=== PATIENT | male | born 1970 | race Caucasian/White ===

== ENCOUNTER 2016-09-30 09:53 | Emergency (ER) | payer OTHER ==
[2016-09-30 11:27] VITALS: BP 124/81
--- NOTE | 2016-09-30 12:26 | UC ---
Ear Complaint HPI - HPI Summary HPI Summary: RIGHT EAR CLOGGED FOR FOUR WEEKS. HAS CHRONIC PROBLEM OF CERUMEN PRODUCTION. USES WAX REMOVAL DROPS. - History of Current Complaint Chief Complaint: UCEar Stated Complaint: RIGHT EAR CLOGGED Time Seen by Provider: 09/30/16 11:21 Hx Obtained From: Patient Onset/Duration: Gradual Onset, Lasting Weeks, Still Present Severity Initially: Mild Severity Currently: Moderate Associated Signs/Symptoms: Positive: Hearing Loss - Allergies/Home Medications Allergies/Adverse Reactions: Allergies Allergy/AdvReac Type Severity Reaction Status Date / Time No Known Allergies Allergy Verified 09/30/16 11:27 Home Medications: Home Medications Cyclobenzaprine TAB* [Flexeril 10 MG TAB*] 10 mg PO 09/30/16 [History] PMH/Surg Hx/FS Hx/Imm Hx Previously Healthy: Yes Endocrine History Of: Reports: Thyroid Disease - HYPOTHYROID Cardiovascular History Of: Reports: Hypertension Neurological History Of: Reports: Seizures - TEMPORAL LOBE EPILEPSY Psychological History Of: Reports: Depression - Surgical History Surgical History: Yes Surgery Procedure, Year, and Place: SKIN TAG REMOVAL FROM NECK - Family History Known Family History: Positive: None - Social History Occupation: Unemployed Lives: With Family Alcohol Use: Occasionally Substance Use Type: None Smoking Status (MU): Never Smoked Tobacco - Immunization History Most Recent Influenza Vaccination: UKN Most Recent Tetanus Shot: UKN Most Recent Pneumonia Vaccination: NONE Review of Systems Constitutional: Negative Skin: Negative Eyes: Negative ENT: Ear Ache Respiratory: Negative Cardiovascular: Negative Gastrointestinal: Negative Genitourinary: Negative Motor: Negative Neurovascular: Negative Musculoskeletal: Negative Neurological: Negative Psychological: Negative All Other Systems Reviewed And Are Negative: Yes Physical Exam Triage Information Reviewed: Yes Appearance: Well-Appearing, No Pain Distress, Well-Nourished Vital Signs: Initial Vital Signs Temp 97.6 F 09/30/16 11:22 Pulse 71 09/30/16 11:22 Resp 18 09/30/16 11:22 BP 124/81 09/30/16 11:22 Pulse Ox 98 09/30/16 11:22 Vital Signs Reviewed: Yes Eye Exam: Normal Eyes: Positive: Conjunctiva Clear ENT: Positive: Hearing grossly normal, Pharynx normal, TMs normal - S/P CERUMEN REMOVAL, Other: - RIGHT CERUMEN IMPACTION Dental Exam: Normal Neck exam: Normal Neck: Positive: Supple, Nontender, No Lymphadenopathy Respiratory Exam: Normal Respiratory: Positive: Chest non-tender, Lungs clear, Normal breath sounds, No respiratory distress, No accessory muscle use Cardiovascular Exam: Normal Cardiovascular: Positive: RRR, No Murmur, Pulses Normal Abdominal Exam: Normal Musculoskeletal Exam: Normal Musculoskeletal: Positive: Strength Intact Neurological Exam: Normal Psychological Exam: Normal Skin Exam: Normal Ear Complaint Course/Dx - Differential Dx/Diagnosis Differential Diagnosis/HQI/PQRI: Otitis Externa, Otitis Media, Trauma, URI Provider Diagnoses: RIGHT SIDED CERUMEN IMPACTION Discharge - Discharge Plan Condition: Stable Disposition: HOME Patient Education Materials: Cerumen Impaction (ED) Referrals: Yasmeen Branch MD [Primary Care Provider] -
== END 2016-09-30 12:22 | disposition home or self-care (01) ==
LOC: UCCORT 09:53
DX: H61.21 Impacted cerumen, right ear (principal); E03.9 Hypothyroidism, unspecified; I10 Essential (primary) hypertension; G40.909 Epilepsy, unspecified, not intractable, without status epilepticus; F32.9 Major depressive disorder, single episode, unspecified
CPT/HCPCS: 99212; G0463

== ENCOUNTER 2016-11-20 09:45 | Emergency (ER) | payer OTHER ==
[2016-11-20 10:52] VITALS: BP 149/85
--- NOTE | 2016-11-20 11:11 | UC ---
Ear Complaint HPI - HPI Summary HPI Summary: pt presents with c/o right ear tenderness, swelling and radiating jaw pain . Pt reports that he has been swimming frequently in [place]. Has history of otitis externa - History of Current Complaint Chief Complaint: UCEar Stated Complaint: BILATERAL EAR COMPLAINT NECK/JAW PAIN Time Seen by Provider: 11/20/16 11:06 Hx Obtained From: Patient Onset/Duration: Gradual Onset, Lasting Days Severity Initially: Mild Severity Currently: Mild Associated Signs/Symptoms: Positive: Swelling @ - right outer ear - Allergies/Home Medications Allergies/Adverse Reactions: Allergies Allergy/AdvReac Type Severity Reaction Status Date / Time No Known Allergies Allergy Verified 11/20/16 10:52 Home Medications: Home Medications Lurasidone (NF) [Latuda (NF)] 40 mg PO 11/20/16 [History Confirmed 11/20/16] PMH/Surg Hx/FS Hx/Imm Hx Previously Healthy: Yes - Surgical History Surgical History: Yes Surgery Procedure, Year, and Place: SKIN TAG REMOVAL FROM NECK - Family History Known Family History: Positive: Cardiac Disease - Social History Alcohol Use: Occasionally Substance Use Type: None Smoking Status (MU): Never Smoked Tobacco - Immunization History Most Recent Influenza Vaccination: UKN Most Recent Tetanus Shot: UKN Most Recent Pneumonia Vaccination: NONE Review of Systems Constitutional: Negative Skin: Negative Eyes: Negative ENT: Ear Ache - right ear Respiratory: Negative Cardiovascular: Negative Gastrointestinal: Negative Genitourinary: Negative Motor: Negative Neurovascular: Negative Musculoskeletal: Negative Neurological: Negative Psychological: Negative All Other Systems Reviewed And Are Negative: Yes Physical Exam Triage Information Reviewed: Yes Appearance: Well-Appearing Vital Signs: Initial Vital Signs Temp 97.5 F 11/20/16 10:47 Pulse 70 11/20/16 10:47 Resp 14 11/20/16 10:47 BP 149/85 11/20/16 10:47 Pulse Ox 96 11/20/16 10:47 Vital Signs Reviewed: Yes Eye Exam: Normal ENT Exam: Other ENT: Positive: Other: - right ear canal mild erythema with creamy white discharge. Neck exam: Normal Respiratory Exam: Normal Cardiovascular Exam: Normal Musculoskeletal Exam: Normal Neurological Exam: Normal Psychological Exam: Normal Skin Exam: Normal Ear Complaint Course/Dx - Differential Dx/Diagnosis Differential Diagnosis/HQI/PQRI: Cerumen Impaction, Otitis Externa Provider Diagnoses: otitis externa right ear Discharge - Discharge Plan Condition: Stable Disposition: HOME Prescriptions: Acetic Acid (Otic) [Acetic Acid] 3 drop OT Q8H #1 bottle Patient Education Materials: Otitis Externa (ED) Referrals: Susan SCHMIDT,Nona Granger [Primary Care Provider] -
== END 2016-11-20 11:29 | disposition home or self-care (01) ==
LOC: UCCORT 09:45
DX: H60.91 Unspecified otitis externa, right ear (principal)
CPT/HCPCS: 99211; G0463

== ENCOUNTER → 2018-12-05 08:05 | Emergency (ER) | payer BC, OTHER ==
[~2018-12-05 08:05] MED LIST: Cyclobenzaprine TAB* 10 MG PO ONE; predniSONE TAB* 20 MG PO ONE
--- NOTE | 2018-12-05 09:10 | ED ---
Back Pain - HPI Summary HPI Summary: This patient is a 48-year-old male with a history of bipolar disorder and anxiety presenting to the ED with right-sided back pain. He states he injured the back approximately 3 weeks ago helping a friend pull on a pipe. He states he may have strained it at that time, but denied any pain other than a dull ache. He states of the course of the last 3 weeks, he has been developing right -sided intermittent aching strain just to the right side of the mid back radiating to the right ribs. He is now stating it is difficult for him to take a deep breath due to discomfort. Denies any history of COPD or asthma. Patient states not being able to breathe is causing him anxiety. He does have Ativan at home but has not taken it. He took ibuprofen 800 mg this morning without relief. - History of Current Complaint Chief Complaint: EDBackInjuryPain Stated Complaint: RT SIDED BACK/RIB PAIN/HARD TO BREATH PER PT Time Seen by Provider: 12/05/18 08:12 Hx Obtained From: Patient Onset/Duration: Sudden Onset Onset/Duration: Started Hours Ago Timing: Constant Back Pain Location: Is Discrete @ - right midback and R ribs Severity Initially: Moderate Severity Currently: Moderate Pain Intensity: 9 Pain Scale Used: 0-10 Numeric Character: Aching Aggravating Symptom(s): Movement Alleviating Symptom(s): Rest Associated Signs And Symptoms: Negative: Swelling, Redness, Bruising - Risk Factors AAA Risk Factors: Negative TAD Risk Factors: Negative Cauda Equina Risk Factors: Negative Epidural Abscess Risk Factors: Negative - Allergies/Home Medications Allergies/Adverse Reactions: Allergies Allergy/AdvReac Type Severity Reaction Status Date / Time No Known Allergies Allergy Verified 12/05/18 08:13 PMH/Surg Hx/FS Hx/Imm Hx Previously Healthy: Yes Endocrine/Hematology History: Reports: Hx Thyroid Disease - HYPOTHYROID Cardiovascular History: Reports: Hx Hypercholesterolemia, Hx Hypertension Sensory History: Reports: Hx Contacts or Glasses Opthamlomology History: Reports: Hx Contacts or Glasses Neurological History: Reports: Hx Seizures - TEMPORAL LOBE EPILEPSY Psychiatric History: Reports: Hx Depression Denies: Hx Eating Disorder, Hx of Violent Episodes Against Others - Surgical History Surgery Procedure, Year, and Place: SKIN TAG REMOVAL FROM NECK - Immunization History Hx Pertussis Vaccination: No Immunizations Up to Date: Yes Infectious Disease History: No Infectious Disease History: Denies: Traveled Outside the [place] in Last 30 Days - Family History Known Family History: Positive: None, Cardiac Disease - Social History Occupation: Employed Full-time Lives: With Family Alcohol Use: Occasionally Hx Substance Use: No Substance Use Type: Reports: None Smoking Status (MU): Never Smoked Tobacco Review of Systems Negative: Fever, Chills, Fatigue, Skin Diaphoresis Negative: Palpitations, Chest Pain Negative: Shortness Of Breath, Cough Genitourinary: Negative Positive: no symptoms reported, see HPI Positive: Arthralgia - right sided rib pain Skin: Negative Neurological: Negative All Other Systems Reviewed And Are Negative: Yes Physical Exam Triage Information Reviewed: Yes Vital Signs On Initial Exam: Initial Vitals Temp Pulse Resp BP Pulse Ox 98.1 F 71 16 173/109 99 12/05/18 08:08 12/05/18 08:08 12/05/18 08:08 12/05/18 08:08 12/05/18 08:08 Vital Signs Reviewed: Yes Appearance: Positive: Well-Appearing, Well-Nourished Skin: Positive: Warm, Skin Color Reflects Adequate Perfusion Head/Face: Positive: Normal Head/Face Inspection Eyes: Positive: EOMI, Conjunctiva Clear Neck: Positive: Supple, Nontender, No Lymphadenopathy Respiratory/Lung Sounds: Positive: Clear to Auscultation, Breath Sounds Present Cardiovascular: Positive: RRR, Pulses are Symmetrical in both Upper and Lower Extremities Musculoskeletal: Positive: Pain @ - right rib pain Neurological: Positive: Speech Normal Psychiatric: Positive: Affect/Mood Appropriate AVPU Assessment: Alert Diagnostics - Vital Signs Vital Signs Temp Pulse Resp BP Pulse Ox 12/05/18 08:08 98.1 F 71 16 173/109 99 - Laboratory Lab Statement: Any lab studies that have been ordered have been reviewed, and results considered in the medical decision making process. Back Pain Course/Dx - Course Course Of Treatment: During his course treatment, the patient is evaluated for right-sided rib pain radiating from the mid spine after a likely strain 3 weeks ago. He states this is typical for him to breathe. On physical examination, there is no pain with deep palpation of the right rib cage. Lungs CTA, RRR. X- ray obtained which shows: No no acute findings or cardiopulmonary disease. This was discussed with the patient. He is given heating pad, Flexeril and prednisone in the ED. he is given prescriptions for this. He will f/u with [facility] [place]. - Diagnoses Differential Diagnosis/HQI/PQRI: Positive: Strain, Sprain Provider Diagnoses: Rib pain on right side Discharge - Sign-Out/Discharge Documenting (check all that apply): Patient Departure Patient Received Moderate/Deep Sedation with Procedure: No - Discharge Plan Condition: Stable Disposition: HOME Prescriptions: Cyclobenzaprine TAB* [Flexeril TAB*] 10 mg PO BID PRN #14 tab PRN Reason: Pain predniSONE TAB* [Deltasone TAB*] 50 mg PO DAILY #5 tab MDD 1 Patient Education Materials: Muscle Strain (ED) Forms: *Work Release Referrals: No Primary Care Phys,NOPCP [Primary Care Provider] - Additional Instructions: If symptoms persist -return to the ED flexeril twice daily as needed for pain Ibuprofen 600mg three times daily Heat to the area Prednisone once daily x 5 days - start tmw morning - Billing Disposition and Condition Condition: STABLE Disposition: Home
[2018-12-05 12:09] VITALS: BP 151/92
== END | disposition home or self-care (01) ==
LOC: ED 08:05
DX: R07.81 Pleurodynia (principal); E03.9 Hypothyroidism, unspecified; E78.00 Pure hypercholesterolemia, unspecified; I10 Essential (primary) hypertension
CPT/HCPCS: 71046; 99283; A9270-GY; J7512

== ENCOUNTER 2018-12-13 01:55 | Emergency (ER) | payer OTHER ==
[2018-12-13] MEDS ORDERED: LORazepam TAB(*) 1 MG PO ONE ×2 (02:13→03:50)
--- NOTE | 2018-12-13 02:18 | ED ---
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 Pt reports these episodes are usually controlled but today he has had 5 in the past 24 hours. He describes these episodes as extremities becoming numb, "they come on like bad anxiety" with heart palpitations, "like my brain is melting," "like I'm gonna ," and abd cramping. 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 Weinberg at [facility]) . Pt states his episodes today are stress induced because he has been under "massive" amount of stress. His medications include [place] for bipolar disorder, lorazepam (but has not taken it in while as he doesn't have any), Methadone ER, Concerta for ADD, 10 mg of Lisinopril for HTN (but has not taken it in a while), Lipitor. PMHx includes temporal lobe epilepsy, bipolar disorder, ADD, HTN, PTSD. - History of Current Complaint Chief Complaint: EDSeizure Stated Complaint: SEIZURES PER EMS Time Seen by Provider: 12/13/18 02:03 Hx Obtained From: Patient Onset/Duration: Started hours ago, Still Present Number of Seizures: 5 - temporal lobe epilepsy Pain Intensity: 0 Pain Scale Used: 0-10 Numeric Character: Numbness/Tingling, Other: - palpitations, abd cramping, "bad anxiety " Aggravating: Nothing Alleviating: Nothing Associated Signs and Symptoms: Positive: Seizure, Numbness, Palpitations, Anxiety. Negative: Fever - Allergy/Home Medications Allergies/Adverse Reactions: Allergies Allergy/AdvReac Type Severity Reaction Status Date / Time No Known Allergies Allergy Verified 12/13/18 20:15 Home Medications: Home Medications Tegretol TAB(*) 800 mg PO QAM MDD 1400 12/13/18 [History Confirmed 12/13/18] PMH/Surg Hx/FS Hx/Imm Hx Endocrine/Hematology History: Reports: Hx Thyroid Disease - HYPOTHYROID Cardiovascular History: Reports: Hx Hypercholesterolemia, Hx Hypertension Sensory History: Reports: Hx Contacts or Glasses Opthamlomology History: Reports: Hx Contacts or Glasses Neurological History: Reports: Hx Seizures - TEMPORAL LOBE EPILEPSY Psychiatric History: Reports: Hx Depression Denies: Hx Eating Disorder, Hx of Violent Episodes Against Others - Surgical History Surgery Procedure, Year, and Place: SKIN TAG REMOVAL FROM NECK Infectious Disease History: No Infectious Disease History: Denies: Traveled Outside the [place] in Last 30 Days - Family History Known Family History: Positive: Cardiac Disease - Social History Alcohol Use: Occasionally Hx Substance Use: No Substance Use Type: Reports: None Smoking Status (MU): Never Smoked Tobacco Review of Systems Constitutional: Other - POSITIVE: recent stress Negative: Fever Positive: Palpitations Positive: Abdominal Pain Positive: Numbness - extremities Positive: Anxious All Other Systems Reviewed And Are Negative: Yes Physical Exam - Summary Physical Exam Summary: Appearance: Well-appearing, Well-nourished, lying in bed comfortably Skin: Warm, dry, no obvious rash Eyes: sclera anicteric, no conjunctival pallor ENT: mucous membranes moist, pharynx appears normal Neck: Supple, nontender Respiratory: Clear to auscultation, no signs of respiratory distress Cardiovascular: Normal S1, S2. No murmurs. Normal distal pulses in tibial and radial bilaterally. Abdomen: Soft, nontender, normal active bowel sounds present Musculoskeletal: Normal, Strength/ROM Intact Neurological: A&Ox3, awake and alert, mentation is normal, speech is fluent and appropriate Psychiatric: affect is normal, does not appear anxious or depressed Triage Information Reviewed: Yes Vital Signs On Initial Exam: Initial Vitals Temp Pulse Resp BP Pulse Ox 98.5 F 68 14 171/105 97 12/13/18 02:04 12/13/18 02:04 12/13/18 02:04 12/13/18 02:04 12/13/18 02:04 Vital Signs Reviewed: Yes Diagnostics - Vital Signs Vital Signs Temp Pulse Resp BP Pulse Ox 12/13/18 02:04 98.5 F 68 14 171/105 97 - Laboratory Result Diagrams: 12/13/18 02:31 12/13/18 02:31 Lab Statement: Any lab studies that have been ordered have been reviewed, and results considered in the medical decision making process. 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 Pt reports these episodes are usually controlled but today he has had 5 in the past 24 hours. He describes these episodes as extremities becoming numb, "they come on like bad anxiety" with heart palpitations, "like my brain is melting," "like I'm gonna ," and abd cramping. Test results within normal limits. In the ED course the pt was given Ativan. Pt will be discharged home with follow up from neurologist, Dr. Corley. He is recommended to have an outpatient EEG to diagnose temporal lobe epilepsy. - Diagnoses Provider Diagnoses: Anxiety Discharge - Sign-Out/Discharge Documenting (check all that apply): Patient Departure - Discharge home Patient Received Moderate/Deep Sedation with Procedure: No - Discharge Plan Condition: Good Disposition: HOME Patient Education Materials: Anxiety (ED) Referrals: Amilcar Corley MD [Medical Doctor] - Additional Instructions: I am not at all convinced that these spells represent temporal lobe seizures. The description you give is much more typical of anxiety or panic attack, and does not sound like the typical symptoms of temporal lobe seizure. I think you should see a neurologist and have an EEG done to find out if you really suffer from TLE. In the interim go ahead and take the ativan up to 3 times daily. - Billing Disposition and Condition Condition: GOOD Disposition: Home - Attestation Statements Document Initiated by Tiffany: Yes Documenting Scribe: Vanessa Jhaveir Provider For Whom Tiffany is Documenting (Include Credential): Antony Méndez MD Scribe Attestation: I, Vanessa Jhaveri, scribed for Antony Méndez MD on 12/14/18 at 0614. Scribe Documentation Reviewed: Yes Provider Attestation: The documentation as recorded by the Vanessa zarco accurately reflects the service I personally performed and the decisions made by me, Antony Méndez MD Status of Scribe Document: Viewed
[2018-12-13 02:40] LABS: ABS Basophils 0.1 10^3/ul (0-0.2); ABS Eosinophils 0.3 10^3/ul (0-0.6); ABS Lymphocytes 3.3 10^3/ul (1.0-4.8); ABS Monocytes 1.2 10^3/ul (0-0.8); ABS Neutrophils 5.7 10^3/ul (1.5-7.7); Eosinophil % 2.8 %; Hematocrit 43 % (42-52); Hemoglobin 14.4 g/dL (14.0-18.0); Lymphocyte % 30.9 %; Mean Corpuscular HGB Conc 34 g/dL (31-36); Mean Corpuscular Hemoglobin 30 pg (27-31); Mean Corpuscular Volume 89 fL (80-94); Platelet Count 289 10^3/uL (150-450); Red Blood Count 4.79 10^6 /uL (4.18-5.48); Red Cell Distribution Width 13 % (10-15); White Blood Count 10.6 10^3/uL (3.5-10.8)
[2018-12-13 03:14] LABS: Alcohol < 10 mg/dL (<10); Carbamazepine 9.3 mcg/mL (4.0-12.0)
[2018-12-13 03:23] LABS: Albumin 4.5 g/dL (3.2-5.2); Albumin/Globulin Ratio 1.7 (1-3); Alkaline Phosphatase 81 U/L (34-104); Anion Gap 9 mmol/L (2-11); BUN/Creatinine Ratio 25.4 (8-20); Blood Urea Nitrogen 16 mg/dL (6-24); CO2 Carbon Dioxide 25 mmol/L (22-32); Calcium 9.5 mg/dL (8.6-10.3); Chloride 104 mmol/L (101-111); EGFR African American 163.8 (>60); EGFR Non-African American 135.4 (>60); Globulin 2.7 g/dL (2-4); Glucose 109 mg/dL (70-100); Sodium 138 mmol/L (135-145); Total Protein 7.2 g/dL (6.4-8.9)
[2018-12-13 03:57] LABS: ALT 21 U/L (7-52); AST 19 U/L (13-39)
[2018-12-13 04:22] VITALS: BP 169/101
[2018-12-13 04:40] LABS: Urine Appearance Clear; Urine Bacteria Absent (Absent); Urine Bilirubin Negative (Negative); Urine Blood 1+ (Negative); Urine Color Yellow; Urine Glucose Negative (Negative); Urine Ketones Negative (Negative); Urine Nitrite Negative (Negative); Urine Protein Negative (Negative); Urine Red Blood Cell Trace(0-2/hpf) (Absent); Urine Specific Gravity 1.013 (1.010-1.030); Urine Squamous Epithelial Cell Present (Absent); Urine Urobilinogen Negative (Negative); Urine White Blood Cell Trace(0-5/hpf) (Absent)
== END 2018-12-13 04:21 | disposition home or self-care (01) ==
LOC: ED 01:55
DX: F41.9 Anxiety disorder, unspecified (principal); E03.9 Hypothyroidism, unspecified; E78.00 Pure hypercholesterolemia, unspecified; I10 Essential (primary) hypertension; Z79.899 Other long term (current) drug therapy
CPT/HCPCS: 36415; 80053; 80156; 80320; 81003; 81015; 85025; 87086; 99283; A9270-GY; G0480

== ENCOUNTER 2018-12-13 18:36 | Emergency (ER) | payer OTHER ==
--- NOTE | 2018-12-13 19:54 | ED ---
Neurological HPI - HPI Summary HPI Summary: A 48 y/o female presents to [facility] with a chief complaint of 4 possible seizures for the past 36 hours. He says that he was in last night and has partial lobe epilepsy. He says that he has been having a "blast of seizures". He says that he takes 1400mg per day of Tegretol. He says that he started a new job and the boss threatens to fire him every day, and he has been having trouble sleeping. He says that he was diagnosed with epilepsy from an EEG when he was 18 and from another EEG in his 20s or 30s. He describes his seizures as having a feeling of euphoria and feeling of impending doom, sees colors, feels like he is going to . He says that he has anxiety which is "totally different". He says last time he was having this he was put on Valium and his symptoms stopped. He takes Ativan at home for anxiety and "burned through his monthly dose too fast". He takes 2mg Ativan per day. He can see that he can see his psychiatrist at [facility] this week. No SI HI. - History of Current Complaint Chief Complaint: EDSeizure Stated Complaint: EPILEPSY PER PT Time Seen by Provider: 12/13/18 19:46 Hx Obtained From: Patient Onset/Duration: Sudden Onset, Started days ago, Still Present Timing: Intermittent Episodes Lasting: - a bust of episodes over the past few days Onset Severity: Mild Current Severity: None Seizure Severity: Mild Number of Seizures: 4 - reports 4 over the last 36 hours Neurological Deficit Location: Generalized Pain Intensity: 0 Pain Scale Used: 0-10 Numeric Character: Other: - "having a feeling of euphoria and feeling of impending doom , sees colors, feels like (he) is going to ." Aggravating: Stress Alleviating: Nothing Associated Signs and Symptoms: Negative: Fever - Allergy/Home Medications Allergies/Adverse Reactions: Allergies Allergy/AdvReac Type Severity Reaction Status Date / Time No Known Allergies Allergy Verified 12/13/18 20:15 Home Medications: Home Medications carBAMazepine TAB(*) [Tegretol TAB(*)] 600 mg PO QPM 12/13/18 [History Confirmed 12/13/18] PMH/Surg Hx/FS Hx/Imm Hx Endocrine/Hematology History: Reports: Hx Thyroid Disease - HYPOTHYROID Cardiovascular History: Reports: Hx Hypercholesterolemia, Hx Hypertension Sensory History: Reports: Hx Contacts or Glasses Opthamlomology History: Reports: Hx Contacts or Glasses Neurological History: Reports: Hx Seizures - TEMPORAL LOBE EPILEPSY Psychiatric History: Reports: Hx Depression Denies: Hx Eating Disorder, Hx of Violent Episodes Against Others - Surgical History Surgery Procedure, Year, and Place: SKIN TAG REMOVAL FROM NECK Infectious Disease History: No Infectious Disease History: Denies: Traveled Outside the [place] in Last 30 Days - Family History Known Family History: Positive: Cardiac Disease - Social History Alcohol Use: Occasionally Hx Substance Use: No Substance Use Type: Reports: None Smoking Status (MU): Never Smoked Tobacco Review of Systems Negative: Fever Neurological: Other - positive: possible seizures Positive: Anxious All Other Systems Reviewed And Are Negative: Yes Physical Exam - Summary Physical Exam Summary: Constitutional: Well-developed, Well-nourished, Alert. (-) Distressed Skin: Warm, Dry HENT: Normocephalic; Atraumatic Eyes: Conjunctiva normal Neck: Musculoskeletal ROM normal neck. (-) JVD, (-) Stridor, (-) Nuchal rigidity Cardio: Rhythm regular, rate normal, Heart sounds normal; Intact distal pulses; Radial pulses are 2+ and symmetric. (-) Murmur Pulmonary/Chest wall: Effort normal. (-) Respiratory distress, (-) Wheezes, (-) Rales Abd: Soft, (-) tenderness, (-) Distension, (-) Guarding, (-) Rebound Musculoskeletal: (-) Edema Lymph: (-) Cervical adenopathy Neuro: Alert, Oriented x3, no focal neuro deficits Psych: anxious Triage Information Reviewed: Yes Vital Signs On Initial Exam: Initial Vitals Temp Pulse Resp BP Pulse Ox 97.9 F 96 20 167/126 97 12/13/18 18:43 12/13/18 18:43 12/13/18 18:43 12/13/18 18:43 12/13/18 18:43 Vital Signs Reviewed: Yes Diagnostics - Vital Signs Vital Signs Temp Pulse Resp BP Pulse Ox 12/13/18 18:43 97.9 F 96 20 167/126 97 - Laboratory Lab Statement: Any lab studies that have been ordered have been reviewed, and results considered in the medical decision making process. Course/Dx - Course Course Of Treatment: 48-year-old gentleman with a reported history of seizures on Tegretol, anxiety who presents with concern over increasing seizures. - Physical exam of the well-appearing male no acute distress does appear anxious though. No seizure activity observed. Patient was here last night with similar symptoms, was observed for many hours and did not have any obvious seizure activity. Patient is on chronic benzodiazepines, discussed with patient that we are not going to continue to fill these in the emergency department, however we will give him a short dose until he can see his psychiatrist this Sunday. Patient instructed not to take benzodiazepines with Benadryl at night to sleep. Follow-up with Dr. Corley in neurology. - Diagnoses Provider Diagnoses: Anxiety, Epilepsy Discharge - Sign-Out/Discharge Documenting (check all that apply): Patient Departure - DC Patient Received Moderate/Deep Sedation with Procedure: No - Discharge Plan Condition: Stable Disposition: HOME Prescriptions: LORazepam TAB(*) [Ativan 1 MG TAB (*)] 1 mg PO BID PRN 3 Days #5 tab MDD 2 PRN Reason: Anxiety Patient Education Materials: Epilepsy (DC), Anxiety (ED) Referrals: Amilcar Corley MD [Medical Doctor] - Additional Instructions: You were seen in the emergency department for seizures and anxiety. Please follow-up with your psychiatrist on Sunday. We will give you a one time prescription for Ativan, however we will not refill this in the emergency department If any studies were not completed at the time of discharge you will be called with the relevant results. Do not drive, take baths on a swim alone. Please follow up with your primary care doctor in next 2-3 days and return to emergency department for worsening or concerning symptoms. - Billing Disposition and Condition Condition: STABLE Disposition: Home - Attestation Statements Document Initiated by Cameronibgianna: Yes Documenting Scribe: Alejandro Foy Provider For Whom Tiffany is Documenting (Include Credential): Precious Bullard MD Scribe Attestation: Alejandro Glover, scribed for Precious Bullard MD on 12/13/18 at 2030. Scribe Documentation Reviewed: Yes Provider Attestation: The documentation as recorded by the Alejandro zarco accurately reflects the service I personally performed and the decisions made by me, Precious Bullard MD Status of Scribe Document: Viewed
[2018-12-13] MEDS ORDERED: LORazepam TAB(*) 1 MG PO ONE (20:07)
[2018-12-13 20:27] VITALS: BP 166/110
== END 2018-12-13 20:26 | disposition home or self-care (01) ==
LOC: ED 18:36
DX: F41.9 Anxiety disorder, unspecified (principal); G40.909 Epilepsy, unspecified, not intractable, without status epilepticus; I10 Essential (primary) hypertension
CPT/HCPCS: 99282

== ENCOUNTER 2018-12-14 21:59 | Emergency (ER) | payer OTHER ==
--- NOTE | 2018-12-14 22:31 | ED ---
Complex/Multi-Sys Presentation - HPI Summary HPI Summary: This patient is a 48 year old M presenting to ED with a chief complaint of constant subjective epileptic seizures since earlier today. Patient reports stomach cramping. Patient recently started a stressful job with a difficult to work with boss. Patient recently ran out of anxiety medicine for his chronic anxiety. The patient rates the pain 6/10 in severity. Symptoms aggravated by nothing. Symptoms alleviated by nothing. - History Of Current Complaint Chief Complaint: EDSeizure Hx Obtained From: Patient Onset/Duration: Gradual Onset, Still Present, Worse Since Timing: Constant Severity Currently: Severe Location: Pain At: - Abdominal cramping Aggravating Factor(s): Nothing Alleviating Factor(s): Nothing Associated Signs And Symptoms: Positive: Abdominal Pain - Cramping, Other - Anxious Related History: Other - Recent stress: new stressful job, ran out of anxiety medication - Allergies/Home Medications Allergies/Adverse Reactions: Allergies Allergy/AdvReac Type Severity Reaction Status Date / Time No Known Allergies Allergy Verified 12/13/18 20:15 PMH/Surg Hx/FS Hx/Imm Hx Endocrine/Hematology History: Reports: Hx Thyroid Disease - HYPOTHYROID Cardiovascular History: Reports: Hx Hypercholesterolemia, Hx Hypertension Sensory History: Reports: Hx Contacts or Glasses Opthamlomology History: Reports: Hx Contacts or Glasses Neurological History: Reports: Hx Seizures - TEMPORAL LOBE EPILEPSY Psychiatric History: Reports: Hx Anxiety, Hx Depression, Hx Bipolar Disorder Denies: Hx Eating Disorder, Hx of Violent Episodes Against Others - Surgical History Surgery Procedure, Year, and Place: SKIN TAG REMOVAL FROM NECK - Family History Known Family History: Positive: Cardiac Disease - Social History Alcohol Use: Occasionally Hx Substance Use: No Substance Use Type: Reports: None Hx Tobacco Use: No Smoking Status (MU): Never Smoked Tobacco Review of Systems Positive: Abdominal Pain - Cramping Neurological: Other - Subjective epileptic seizures Positive: Anxious All Other Systems Reviewed And Are Negative: Yes Physical Exam - Summary Physical Exam Summary: Appearance: Well-appearing, Well-nourished, lying in bed comfortable, claims to be having a seizure as we are talking, but he is totally lucid Skin: Warm, dry, no obvious rash Eyes: sclera anicteric, no conjunctival pallor ENT: mucous membranes moist Neck: deferred Respiratory: No signs of respiratory distress Cardiovascular: Appears well perfused, pulses are nml Abdomen: deferred Musculoskeletal: Moving all 4 extremities without obvious discomfort Neurological: Awake and alert, mentation is normal, speech is fluent and appropriate Psychiatric: affect is normal, does not appear anxious or depressed Triage Information Reviewed: Yes Vital Signs On Initial Exam: Initial Vitals Temp Pulse Resp BP Pulse Ox 98.5 F 80 18 190/118 98 12/14/18 22:21 12/14/18 22:21 12/14/18 22:21 12/14/18 22:21 12/14/18 22:21 Vital Signs Reviewed: Yes Diagnostics - Laboratory Result Diagrams: 12/14/18 22:54 12/14/18 22:54 Lab Statement: Any lab studies that have been ordered have been reviewed, and results considered in the medical decision making process. Re-Evaluation - Re-Evaluation First Eval Re-Evaluation Time: 22:41 Comment: Discussed Dr. Garcia's recommendations with patient and my suggestion for hospitalist admission for IV Ativan or for outpatient neuro evaluation. Patient admits to many recent stressors: family, overwork, less sleep, quit vaping 2 weeks ago. Patient agrees to be [place] [facility] Second Eval Re-Evaluation Time: 23:29 Change: Improved Comment: Discussed results with patient. Patient reports feeling better. Third Eval Re-Evaluation Time: 02:14 Change: Improved Comment: The patient is feeling much better after ativan IV. I am going to discharge the patient now with 2 x 1 mg tablets of ativan for tomorrow, and will contact his pharmacy tomorrow so they can fill a 1 week supply which will allow him to get in to see the neurologist this week to have more appropriate followup. I remain unconvinced that he is actually suffering from epiliptic seizures, and going forward if he is to get any further ativan or other medication for seizures, it would have to be from a neurologist. Complex Multi-Symp Course/Dx Course Of Treatment: This patient is a 48 year old M presenting to ED with a chief complaint of constant subjective epileptic seizures since earlier today. In the ED course, patient received fluids, Ativan, and Tegretol. Blood work revealed absolute monos 0.9, glucose 113. Discussed patient case with Dr. Garcia, neurologist, who recommended the patient receive Ativan, since this will treat both anxiety and seizures. At 2256, discussed patient case with Dr. Winters, hospitalist, who accepted the patient for admission to [facility]. At 2313, discussed patient case with Dr. Winters, who recommended the patient be transferred to another facility that performs continuous EEG monitoring for seizures. Therefore , I will treat the patient with Ativan here in the ED to see if it makes his symptoms better. If not I will transfer him. In the ED, patient reports feeling better. Discussed results with patient. Patient will be discharged w dx of withdrawal from benzodiazepines. Patient understands and agrees with this plan. - Diagnoses Provider Diagnoses: Withdrawal from benzodiazepine - Physician Notifications Discussed Care Of Patient With: Chad Garcia Time Discussed With Above Provider: 22:32 Instructed by Provider To: Other - Discussed patient case with Dr. Garcia, neurologist, who recommended the patient receive Ativan, since this will treat both anxiety and seizures. At 2255, discussed patient case with Dr. Winters, hospitalist, who accepted the patient for admission to [facility]. At 2313, discussed patient case with Dr. Winters, who recommended the patient be transferred to another facility that performs continous EEG monitoring for seizures. Discharge - Sign-Out/Discharge Documenting (check all that apply): Patient Departure - Discharge Patient Received Moderate/Deep Sedation with Procedure: No - Discharge Plan Condition: Good Disposition: HOME Referrals: Chad Garcia MD [Medical Doctor] - Additional Instructions: We have given you ativan to get through tomorrow, and I will contact your pharmacy tomorrow afternoon and ask them to fill a week's supply of ativan. You MUST call Dr. Garcia's office and get in to see one of the neurologists there and establish care. Any further medication would have to be provided by them after their evaluation. - Billing Disposition and Condition Condition: GOOD Disposition: Home - Attestation Statements Document Initiated by Tiffany: Yes Documenting Scribe: Osman Mcdowell Provider For Whom Tiffany is Documenting (Include Credential): MD Cameron Sanchezibgianna Attestation: I, Osman Mcdowell, scribed for Antony Méndez MD on 12/15/18 at 0612. Scribe Documentation Reviewed: Yes Provider Attestation: The documentation as recorded by the Osman zarco accurately reflects the service I personally performed and the decisions made by me, Antony Méndez MD Status of Scribe Document: Viewed
[2018-12-14] MEDS ORDERED: NS 0.9% 1000 ML** 2,000 ML IV ONE (22:41)
[2018-12-14] MEDS ORDERED: Lorazepam PYXIS KEY PRN (22:42)
[2018-12-14] MEDS ORDERED: LORazepam INJ* 2 MG/ML 1 ML VIAL IV PUSH ONE (22:42)
[2018-12-14 23:04] LABS: ABS Basophils 0.1 10^3/ul (0-0.2); ABS Eosinophils 0.2 10^3/ul (0-0.6); ABS Lymphocytes 2.8 10^3/ul (1.0-4.8); ABS Monocytes 0.9 10^3/ul (0-0.8); ABS Neutrophils 5.2 10^3/ul (1.5-7.7); Eosinophil % 2.7 %; Hematocrit 43 % (42-52); Hemoglobin 14.5 g/dL (14.0-18.0); Lymphocyte % 29.9 %; Mean Corpuscular HGB Conc 34 g/dL (31-36); Mean Corpuscular Hemoglobin 30 pg (27-31); Mean Corpuscular Volume 89 fL (80-94); Mean Platelet Volume 7.9 fL (7.4-10.4); Platelet Count 292 10^3/uL (150-450); Red Cell Distribution Width 13 % (10-15); White Blood Count 9.2 10^3/uL (3.5-10.8)
[2018-12-14] MEDS ORDERED: Lorazepam PYXIS KEY ONE (23:22)
[2018-12-14 23:24] LABS: BUN/Creatinine Ratio 18.3 (8-20); Calcium 9.6 mg/dL (8.6-10.3); EGFR African American 120.8 (>60); EGFR Non-African American 99.9 (>60)
[2018-12-14] MEDS ORDERED: carBAMazepine TAB(*) 200 MG PO ONE (23:45)
[2018-12-15 02:37] VITALS: BP 163/105
== END 2018-12-15 02:35 | disposition home or self-care (01) ==
LOC: ED 21:59
DX: F13.239 Sedative, hypnotic or anxiolytic dependence with withdrawal, unspecified (principal); E03.9 Hypothyroidism, unspecified; E78.00 Pure hypercholesterolemia, unspecified; I10 Essential (primary) hypertension; F31.9 Bipolar disorder, unspecified; F41.9 Anxiety disorder, unspecified; Z79.899 Other long term (current) drug therapy
CPT/HCPCS: 36415; 80048; 83605; 85025; 96361; 96374; 99283; A9270-GY; J2060

== ENCOUNTER 2018-12-19 16:23 | Inpatient (IN) | payer OTHER ==
--- OUTSIDE RECORDS SUMMARY | 2018-12-19 17:19 | XMS REPORT | Continuity of Care Document ---
:1970 External Reference #:[id number] Author Name Lizette Schaeffer Care Team Providers Name Role Phone Hai Ojeda III, MD Primary Care Physician Unavailable Payers Date Identification Numbers Payment Provider Subscriber Effective: 2018 Policy Number: [id number] Santos Stanislav Bobo Group Number: [id number] Group Name: Medicaid [place] [address] PayID: [id number] Social History Type Date Description Comments Sex Unknown Hand Dominance Right-handed ETOH Use Denies alcohol use Tobacco Use Start: Unknown Light tobacco smoker (10 or fewer vape cigarettes/day) Smoking Status Reviewed: 12/19/18 Light tobacco smoker (10 or fewer vape cigarettes/day) Allergies, Adverse Reactions, Alerts Description No Known Drug Allergies Medications Active Medications SIG Qnty Indications Ordering Provider Date Tegretol 400MG a day Unknown 100mg/5ML Suspension Nicut Carbonate 900 MG a day Unknown 600mg Capsules Ritalin 78MG a day Unknown 20mg Tablets Lisinopril 1 by mouth Unknown 10mg Tablets every day Atorvastatin Calcium 1 by mouth Unknown 20mg every day Tablets Levothyroxine Sodium 1 by mouth Unknown 125mcg every day Tablets Vital Signs Date Vital Result Comment 12/19/2018 8:06am Height 75 inches 6'3" Weight 268.00 lb Heart Rate 97 /min BP Systolic 158 mmHg BP Diastolic 94 mmHg BMI (Body Mass Index) 33.5 kg/m2 Results Test Date Facility Test Result H/L Range Note Urine Drug [facility] Amphetamine Ur None Detected Normal None Detect SCR ED & [address] [place] [address] [phone] Barbiturates Urine Screen None Detected Normal None Detect Benzodiazepine Urine Screen None Detected Normal None Detect Urine Cannabinoids Screen None Detected Normal None Detect Urine Cocaine Screen None Detected Normal None Detect Urine Opiates Screen None Detected Normal None Detect Urine Phencyclidine Screen None Detected Normal None Detect 1 CBC Auto 10/14/2013 [facility] White Blood 7.1 10^3/uL Normal 4.8-10.[address] [place] [address] [phone] Red Blood Count 4.53 10^6/uL Normal 4.0-5.4 Hemoglobin 13.8 g/dL Low 14.0-18.0 Hematocrit 41 % Low 42-52 Mean Corpuscular Volume 90 fL Normal 80-94 Mean Corpuscular Hemoglobin 30 pg Normal 27-31 Mean Corpuscular HGB Conc 34 g/dL Normal 31-36 Red Cell Distribution Width 13 % Normal 10.5-15 Platelet Count 267 10^3/uL Normal 150-450 Mean Platelet Volume 8 um3 Normal 7.4-10.4 Abs Neutrophils 4.1 10^3/uL Normal 1.5-7.7 Abs Lymphocytes 2.1 10^3/uL Normal 1.0-4.8 Abs Monocytes 0.8 10^3/uL Normal 0-0.8 Abs Eosinophils 0.1 10^3/uL Normal 0-0.6 Abs Basophils 0 10^3/uL Normal 0-0.2 Abs Nucleated RBC 0 10^3/uL Normal Granulocyte % 57.1 % Normal 38-83 Lymphocyte % 29.3 % Normal 25-47 Monocyte % 11.6 % High 1-9 Eosinophil % 1.4 % Normal 0-6 Basophil % 0.6 % Normal 0-2 Nucleated Red Blood Cells % 0 Normal Comp Metabolic 10/14/2013 [facility] Sodium 137 mmol/L Normal 133-[address] [place] [address] [phone] Potassium 3.8 mmol/L Normal 3.7-5.6 Chloride 102 mmol/L Normal 101-111 Co2 Carbon Dioxide 27 mmol/L Normal 22-32 Anion Gap 8 mmol/L Normal 2-11 Glucose 121 mg/dL High 70-100 Blood Urea Nitrogen 11 mg/dL Normal 6-24 Creatinine 0.87 mg/dL Normal 0.67-1.17 BUN/Creatinine Ratio 12.6 Normal 8-20 Calcium 9.3 mg/dL Normal 8.6-10.3 Total Protein 7.3 g/dL Normal 6.4-8.9 Albumin 4.4 g/dL Normal 3.2-5.2 Globulin 2.9 g/dL Normal 2-4 Albumin/Globulin Ratio 1.5 Normal 1-3 Total Bilirubin 0.30 mg/dL Normal 0.2-1.0 Alkaline Phosphatase 66 U/L Normal 34-104 Alt 31 U/L Normal 7-52 Ast 20 U/L Normal 13-39 Egfr Non- 95.3 Normal >60 Egfr 122.6 Normal >60 2 Laboratory test 10/14/2013 [facility] Acetaminophen < 15 g/mL Normal [address] [place] [address] [phone] Alcohol < 10 mg/dL Normal <10 Salicylate < 2.50 mg/dL Normal <30 TSH (Thyroid Stimulating Horm) 0.24 IU/mL Low 0.34-5.60 1 The urine specimen was tested at the listed cutoffs: Drug class test level (ng/ml) Amphetamines 300 Barbituates 200 Benzodiazepine metabolites 200 Cocaine metabolites 300 Cannabinoids 25 Opiates 200 Pcp 25 This is a screening procedure. Positive results are not confirmed. Specimen was received without chain of custody. Results should be used for medical purposes only. 2 Because ethnic data is not always readily available, this report includes an eGFR for both -Americans and non- Americans. The National Kidney Disease Education Program (NKDEP) does not endorse the use of the MDRD equation for patients that are not between the ages of 18 and 70, are , have extremes of body size, muscle mass, or nutritional status, or are non- or non-. According to the National Kidney Foundation, irrespective of diagnosis, the stage of the disease is based on the level of kidney function: Stage Description GFR(mL/min/1.73 m(2)) 1 Kidney damage with normal or decreased GFR 90 2 Kidney damage with mild decrease in GFR 60-89 3 Moderate decrease in GFR 30-59 4 Severe decrease in GFR 15-29 5 Kidney failure <15 (or dialysis) 3 Therapeutic concentration: <50 ug/mL Toxic concentration: >120 ug/mL Encounters Type Date Location Provider Dx Diagnosis Office Visit 10/17/2013 [facility] Erickson Hurt, 704.8 [facility] 12:13[facility] Other Spec 401.9 Hypertension Unspec 244.9 Hypothyroidism Other Unspec 300.4 Dysthymic Disorder Office Visit 11/30/2010 4:45p Orthopedic Yuan Jalloh, 682.6 [facility] Except Foot Plan of Treatment Future Appointment(s):01/30/2019 8:00 am - Erickson Hurt N.P. at [facility]12/19/2018 - Erickson Hurt N.P.G40.89 Other seizuresNew Xrays:MRI Brain W/Wo, Ordered: 12/19/18New Orders:EEG, Routine, Ordered: 12/19/18Follow up:6 weeksRecommendations:please have your labs done in the morning prior to taking your medications call me after your eeg and mri to discuss [id number] Bipolar disorder, unspecified
--- OUTSIDE RECORDS SUMMARY | 2018-12-19 17:19 | XMS REPORT | Continuity of Care Document ---
:1970 External Reference #:[id number] Author Name AndrewsDinora emndez Care Team Providers Name Role Phone Hai Ojeda III, MD Primary Care Physician Unavailable Payers Date Identification Numbers Payment Provider Subscriber Effective: 2018 Policy Number: [id number] Santos Stanislav Bobo Group Number: [id number] Group Name: Medicaid [place] [address] PayID: [id number] Social History Type Date Description Comments Sex [...] Tegretol 400MG a day Unknown 100mg/5ML Suspension Amado Carbonate 900 MG a day Unknown 600mg Capsules Lisinopril 1 by mouth Unknown 10mg Tablets every day Atorvastatin Calcium 1 by mouth Unknown 20mg every day Tablets Levothyroxine Sodium 1 by mouth Unknown 125mcg every day Tablets Lexapro 1 by mouth Unknown 20mg Tablets every day Concerta 2 by mouth Unknown 36mg Tablets ER every day History Medications Methylphenidate Hydrochloride ER 2 tabs daily Unknown - 12/19 36mg Tablets ER Immunizations CPT Code Status Date Vaccine Lot # [id number] Given 05/14/2013 Tetanus And Diptheria (Td) For Adult Use Preservative Free Vital Signs Date Vital Result Comment 12/19/2018 9:58am Height 75 inches 6'3" Weight 267.00 lb Heart Rate 88 /min BP Systolic Sitting 150 mmHg BP Diastolic Sitting 101 mmHg BMI (Body Mass Index) 33.4 kg/m2 12/19/2018 8:06am Height 75 inches 6'3" Weight 268.00 lb Heart Rate 97 /min BP Systolic 158 mmHg BP Diastolic 94 mmHg BMI (Body Mass Index) 33.5 kg/m2 Results Test Date Facility Test Result H/L Range Note Urine Drug [facility] Amphetamine Ur None Detected Normal None Detect SCR ED & [address] [place] [address] [phone] Barbiturates Urine Screen None Detected Normal None Detect Benzodiazepine Urine Screen None Detected Normal None Detect Urine Cannabinoids Screen None Detected Normal None Detect Urine Cocaine Screen None Detected Normal None Detect Urine Opiates Screen None Detected Normal None Detect Urine Phencyclidine Screen None Detected Normal None Detect 1 CBC Auto 10/14/2013 [facility] White Blood 7.1 10^3/uL Normal 4.8-10.[address] [place] [address] [phone] Red Blood Count 4.53 10^6/uL Normal 4.0-5.4 [...] Cells % 0 Normal Comp Metabolic 10/14/2013 [facility] Sodium 137 mmol/L Normal 133-145 Panel [address] [place] [address] [phone] Potassium 3.8 mmol/L Normal 3.7-5.6 Chloride 102 [...] 122.6 Normal >60 2 Laboratory test 10/14/2013 [facility] Acetaminophen < 15 g/mL Normal 3 finding [address] [place] [address] [phone] Alcohol < 10 mg/dL Normal <10 Salicylate [...] Location Provider Dx Diagnosis Office Visit 10/17/2013 [facility] Ericksonrosendo Hurt, 704.8 [facility] 12:13p [facility] Other Spec 401.9 Hypertension Unspec 244.9 Hypothyroidism Other Unspec 300.4 Dysthymic Disorder Office Visit 11/30/2010 4:45p Orthopedic Yuan Jalloh, 682.6 [facility] Foot Plan of Treatment Future Appointment(s):01/30/2019 9:00 am - Hai Ojeda M.D. at [facility] Internal Medicine - [facility]01/30/2019 8:00 am - Erickson Hurt N.P. at [place] [facility]12/19/2018 - Hai Ojeda M.D.G40.89 Other [id number] Bipolar disorder, [id number] Essential (primary) hypertensionFollow up:Jan 30 with home BP [id number] Hypothyroidism, [id number] Mixed hyperlipidemia
[2018-12-19 17:21] LABS: ABS Basophils 0.1 10^3/ul (0-0.2); ABS Eosinophils 0.2 10^3/ul (0-0.6); ABS Lymphocytes 2.2 10^3/ul (1.0-4.8); ABS Monocytes 0.9 10^3/ul (0-0.8); ABS Neutrophils 6.3 10^3/ul (1.5-7.7); Eosinophil % 1.7 %; Hematocrit 45 % (42-52); Lymphocyte % 22.8 %; Mean Corpuscular HGB Conc 33 g/dL (31-36); Mean Corpuscular Hemoglobin 30 pg (27-31); Mean Corpuscular Volume 90 fL (80-94); Mean Platelet Volume 7.9 fL (7.4-10.4); Nucleated Red Blood Cells % 0.1; Platelet Count 328 10^3/uL (150-450); Red Blood Count 4.98 10^6 /uL (4.18-5.48); Red Cell Distribution Width 13 % (10-15); White Blood Count 9.7 10^3/uL (3.5-10.8)
--- NOTE | 2018-12-19 17:27 | ED ---
Psychiatric Complaint - HPI Summary HPI Summary: 48 year old M brought in by police on 9.45 to [facility] with a chief complaint of worsening suicidal ideation over for the last few months. The patient rates the pain 0/10 in severity. Symptoms aggravated by nothing. Symptoms alleviated by nothing. Patient reports suicidal plan. Patient reports disorganized thinking and inability to care for himself. Patient denies visual and auditory hallucinations. Patient states he doesn't want to for his children. Denies hx suicidal attempts. Reports hx bipolar disorder II, anxiety, depression, PTSD , substance abuse, ADHD. Reports hx admission to psychiatric unit, last time being 5 years ago. Patient states he uses marijuana, last time not within the last few weeks. Patient states he was recently diagnosed with seizures for which he sees Dr. Garcia, neurology. - History Of Current Complaint Chief Complaint: EDSuicidal Time Seen by Provider: 12/19/18 16:59 Hx Obtained From: Patient Onset/Duration: Lasting Weeks, Still Present Timing: Constant Severity Currently: None Aggravating Factor(s): Nothing Alleviating Factor(s): Nothing Has Suicidal: Reports: Thoughts, With A Plan - Allergies/Home Medications Allergies/Adverse Reactions: Allergies Allergy/AdvReac Type Severity Reaction Status Date / Time No Known Allergies Allergy Verified 12/19/18 22:40 Home Medications: Home Medications Newtok Carbonate [Newtok Carbonate 300 mg cap] 600 mg PO QPM 12/19/18 [ History Confirmed 12/19/18] carBAMazepine TAB(*) [TEGretol TAB(*)] 600 mg PO QPM 12/19/18 [History Confirmed 12/19/18] carBAMazepine TAB(*) [TEGretol TAB(*)] 800 mg PO QAM 12/19/18 [History Confirmed 12/19/18] PMH/Surg Hx/FS Hx/Imm Hx Endocrine/Hematology History: Reports: Hx Thyroid Disease - HYPOTHYROID Cardiovascular History: Reports: Hx Hypercholesterolemia, Hx Hypertension Sensory History: Reports: Hx Contacts or Glasses Opthamlomology History: Reports: Hx Contacts or Glasses Neurological History: Reports: Hx Seizures - TEMPORAL LOBE EPILEPSY Psychiatric History: Reports: Hx Anxiety, Hx Attention Deficit Hyperactivity Disorder, Hx Depression, Hx Post Traumatic Stress Disorder, Hx Bipolar Disorder - II, Hx Substance Abuse Denies: Hx Eating Disorder, Hx Suicide Attempt, Hx of Violent Episodes Against Others - Surgical History Surgery Procedure, Year, and Place: SKIN TAG REMOVAL FROM NECK Infectious Disease History: No Infectious Disease History: Denies: Traveled Outside the [place] in Last 30 Days - Family History Known Family History: Positive: Cardiac Disease - Social History Alcohol Use: Occasionally Hx Substance Use: No Substance Use Type: Reports: None Hx Tobacco Use: No Smoking Status (MU): Never Smoked Tobacco Review of Systems Negative: Fever Positive: Other - suicidal ideation, suicidal plan, disorganized thinking and inability to care for himself; NEG: visual and auditory hallucinations All Other Systems Reviewed And Are Negative: Yes Physical Exam - Summary Physical Exam Summary: GENERAL: Patient is a well-developed and nourished M who is lying comfortable in the stretcher. Patient is not in any acute respiratory distress. HEAD AND FACE: Normocephalic EYES: PERRLA, EOMI x 2. EARS: Hearing grossly intact. MOUTH: Oropharynx within normal limits. NECK: Supple, trachea is midline, no adenopathy, no JVD, no carotid bruit. CHEST: Symmetric, no tenderness at palpation LUNGS: Clear to auscultation bilaterally. No wheezing or crackles. CVS: Regular rate and rhythm, S1 and S2 present, no murmurs or gallops appreciated. ABDOMEN: Soft, non-tender. Bowel sounds are normal. No abnormal abdominal pulsations. EXTREMITIES: Full ROM in all major joints, no edema, no cyanosis or clubbing. NEURO: Alert and oriented x 3. No acute neurological deficits. Speech is normal and follows commands. SKIN: Dry and warm PSYCH: Patient reports suicidal ideation, denies visual or auditory hallucinations, has linear thought process and content Triage Information Reviewed: Yes Vital Signs On Initial Exam: Initial Vitals Temp Pulse Resp BP Pulse Ox 99.4 F 98 16 176/118 96 12/19/18 16:25 12/19/18 16:25 12/19/18 16:25 12/19/18 16:25 12/19/18 16:25 Vital Signs Reviewed: Yes Diagnostics - Vital Signs Vital Signs Temp Pulse Resp BP Pulse Ox 12/19/18 16:25 99.4 F 98 16 176/118 96 - Laboratory Result Diagrams: 12/19/18 17:11 12/19/18 17:11 Lab Statement: Any lab studies that have been ordered have been reviewed, and results considered in the medical decision making process. Course/Dx - Course Course Of Treatment: 48 year old M brought in by police on .45 to [facility] with a chief complaint of worsening suicidal ideation, suicidal plan, disorganized thinking, inability to care for himself over for the last few months. Patient denies visual and auditory hallucinations. Patient states he doesn't want to for his children. PE findings: Patient reports suicidal ideation, denies visual or auditory hallucinations, has linear thought process and content. Labs with no significant abnormalities except for absolute monos 0.9, glucose 124. UAs with no significant abnormalities except for blood 1+, squamous epithelial cells, absorbic acid A. The patient will be signed out to Dr. Jerome upon shift change at 19:00 12/19/18, awaiting MHE and pending disposition. - Differential Dx/Clinical Impression Provider Diagnosis: Bipolar 2 disorder Discharge - Sign-Out/Discharge Documenting (check all that apply): Sign-Out Patient Signing out patient TO: Tori Jerome - Awaiting MHE, pending disposition Patient Received Moderate/Deep Sedation with Procedure: No - Discharge Plan Condition: Stable Disposition: [place]ATR[place] [place] Billing Disposition and Condition Condition: STABLE Disposition: Psychiatric Facility [facility] [place] - Attestation Statements Document Initiated by Scribe: Yes Documenting Scribe: Mary Jaquez Provider For Whom Scribe is Documenting (Include Credential): Merrill Calvert MD Scribe Attestation: Mary Glover, scribed for Merrill Calvert MD on 12/21/18 at 0819. Scribe Documentation Reviewed: Yes Provider Attestation: The documentation as recorded by the scribeMary accurately reflects the service I personally performed and the decisions made by me, Merrill Calvert MD Status of Scribe Document: Viewed
[2018-12-19 17:37] LABS: Urine Appearance Clear; Urine Bacteria Absent (Absent); Urine Bilirubin Negative (Negative); Urine Blood 1+ (Negative); Urine Color Yellow; Urine Glucose Negative (Negative); Urine Ketones Negative (Negative); Urine Nitrite Negative (Negative); Urine Protein Negative (Negative); Urine Red Blood Cell Trace(0-2/hpf) (Absent); Urine Specific Gravity 1.021 (1.010-1.030); Urine Squamous Epithelial Cell Present (Absent); Urine Urobilinogen Negative (Negative); Urine White Blood Cell Trace(0-5/hpf) (Absent)
[2018-12-19 17:40] LABS: Urine Benzodiazepine Screen None Detected (None Detect); Urine Opiates Screen None Detected (None Detect)
[2018-12-19 17:42] LABS: ALT 20 U/L (7-52); AST 16 U/L (13-39); Albumin 4.9 g/dL (3.2-5.2); Albumin/Globulin Ratio 1.5 (1-3); Alkaline Phosphatase 70 U/L (34-104); Anion Gap 9 mmol/L (2-11); BUN/Creatinine Ratio 14.3 (8-20); Blood Urea Nitrogen 13 mg/dL (6-24); CO2 Carbon Dioxide 26 mmol/L (22-32); Calcium 9.8 mg/dL (8.6-10.3); Chloride 106 mmol/L (101-111); EGFR African American 107.1 (>60); EGFR Non-African American 88.6 (>60); Globulin 3.2 g/dL (2-4); Glucose 124 mg/dL (70-100); Potassium 4.1 mmol/L (3.5-5.0); Sodium 141 mmol/L (135-145); Total Protein 8.1 g/dL (6.4-8.9)
[2018-12-19 17:48] LABS: Acetaminophen < 15 mcg/mL; Alcohol < 10 mg/dL (<10); Salicylate < 2.50 mg/dL (<30)
[2018-12-19 18:02] LABS: TSH (Thyroid Stimulating Horm) 0.65 mcIU/mL (0.34-5.60)
--- NOTE | 2018-12-19 19:16 | ED ---
Progress - Progress Note Progress Note: Patient is received as a sign out from Dr. Calvert to Dr. Jerome at 1900 12/19/18 shift change pending disposition of this patient. 1912 - worker Yesika reports that the patient will be a voluntary admit with Dx of Bipolar Type II under Dr. Govea. - Consult/PCP Time Called: 18:10 Course/Dx - Course Course Of Treatment: Patient is received as a sign out from Dr. Calvert to Dr. Jerome at 1900 12/19/18 shift change pending disposition of this MH patient. 1912 - worker Yesika reports that the patient will be a voluntary admit with Dx of Bipolar Type II under Dr. Govea. - Diagnoses Provider Diagnoses: Bipolar 2 disorder - Provider Notifications Discussed Care Of Patient With: Frederic Govea Time Discussed With Above Provider: 19:13 Instructed by Provider To: Other - 1912 - worker Yesika reports that the patient will be a voluntary admit with Dx of Bipolar Type II under Dr. Govea. Discharge - Sign-Out/Discharge Documenting (check all that apply): Patient Departure - admit, Receiving Sign- Out Receiving patient FROM: Merrill Calvert - Discharge Plan Condition: Stable Disposition[place] [place] Referrals: Hai Ojeda MD [Primary Care Provider] - - Attestation Statements Document Initiated by Scribe: Yes Documenting Scribe: JONI LY Provider For Whom Scrbinta is Documenting (Include Credential): ANDREI JEROME MD Scribe Attestation: JONI Glover, scribed for ANDREI JREOME MD on 12/19/18 at 1919. Status of Scribe Document: Ready
[2018-12-19 20:23] LABS: Lithium 0.34 mmol/L (0.6-1.2)
[2018-12-19] MEDS ORDERED: Al Hydrox/Mg Hydrox/Simet LIQ* 30 ML UDC PO PRN (21:26)
[2018-12-19] MEDS ORDERED: Acetaminophen TAB* 325 MG PO PRN (21:26)
[2018-12-19] MEDS: Atorvastatin* 20 MG TAB PO SCH (21:31)
[2018-12-19] MEDS: carBAMazepine TAB(*) 200 MG PO SCH (21:48)
[2018-12-19] MEDS ORDERED: Lithium Carbonate TAB* 300 MG PO SCH (22:00)
[2018-12-20] MEDS: diPHENhydraMINE PO* 50 MG PO PRN ×2 (01:38→20:52)
[2018-12-20] MEDS: Vitamin THERAPEUTIC TAB PO SCH (08:24)
[2018-12-20] MEDS: Levothyroxine TAB* 125 MCG TAB PO SCH (08:24)
[2018-12-20] MEDS: Lisinopril TAB* 10 MG PO SCH (08:25)
[2018-12-20] MEDS: carBAMazepine TAB(*) 200 MG PO SCH ×2 (08:25→17:37)
[2018-12-20] MEDS ORDERED: Lithium Carbonate TAB* 300 MG PO SCH (09:00)
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
[2018-12-20] MEDS: Nicotine* 4MG (FRUIT FLAVOR) GUM PO PRN (17:38)
[2018-12-20] MEDS: Atorvastatin* 20 MG TAB PO SCH (17:38)
[2018-12-20] MEDS: LORazepam TAB(*) 1 MG PO PRN (17:38)
[2018-12-20] MEDS: Hydrocortisone 1% CREAM* 30 GM TUBE TOPICAL PRN ×3 (17:40→20:56)
[2018-12-20] MEDS: Nicotine PATCH 21 MG/24 HR* PATCH TRANSDERM SCH (17:43)
[2018-12-20] MEDS: Lithium Carbonate ER* 450 MG TAB.ER PO SCH (20:50)
[2018-12-20] MEDS: Escitalopram * 20 MG TABLET PO SCH (20:50)
[2018-12-20] MEDS: Nicotine Patch Removal NOTE FOLLOW UP SCH (20:54)
[2018-12-20] MEDS ORDERED: Lithium Carbonate ER* 450 MG TAB.ER PO SCH (21:00)
[2018-12-21 08:21] LABS: HDL Cholesterol 48.7 mg/dL
[2018-12-21] MEDS: Levothyroxine TAB* 125 MCG TAB PO SCH (08:42)
[2018-12-21] MEDS: Lisinopril TAB* 10 MG PO SCH (08:43)
[2018-12-21] MEDS: Nicotine PATCH 21 MG/24 HR* PATCH TRANSDERM SCH (08:43)
[2018-12-21] MEDS: Vitamin THERAPEUTIC TAB PO SCH (08:44)
[2018-12-21] MEDS: carBAMazepine TAB(*) 200 MG PO SCH ×2 (08:45→19:16)
[2018-12-21] MEDS: LORazepam TAB(*) 1 MG PO PRN ×2 (08:49→23:03)
[2018-12-21] MEDS: Nicotine* 4MG (FRUIT FLAVOR) GUM PO PRN ×3 (08:55→23:06)
[2018-12-21] MEDS: Hydrocortisone 1% CREAM* 30 GM TUBE TOPICAL PRN ×2 (08:57→19:19)
--- NOTE | 2018-12-21 16:09 | PN ---
Subjective - Subjective Date of Service: 12/21/18 Service Type: 98887 Hosp care 15 min low complexity Subjective: Misael is seen in weekend coverage for NPP, Felisha Franco. He denies SI and states that he has a solid discharge plan that should allow him to leave by Sunday or Sunday of the upcoming week. "I see Colton Fierro and Dr. Weinberg at the clinic. I'm feeling better about things." He still endorses anxiety attacks that have physical, shaking components and says that retired neurologist Amina Salinas diagnosed him with complex partial seizures. "I've had a couple of them just while being here." He is tolerating his medications well. Objective - General Observations Appearance: Well Groomed Appears Stated Age: Yes Stature: Tall Posture: WNL Eye Contact: Average Behavior/Activity: WNL - Interaction Observations Attitude Towards Examiner: Cooperative Stated Mood: Euthymic Affect: Full Speech Pattern/Tone: Clear, Appropriate, Normal Volume Thought Process: Coherent Perception: WNL Thought Content: WNL Hallucination Type: None Delusion Type: None - Cognitive Function Orientation: A&O x 4 Level of Consciousness: Awake Cognition: WNL Estimated Intelligence: Normal Insight: WNL Judgment Within Normal Limits: Yes - Medication Compliance Cooperative with Inpatient Medication Regimen: Yes - Group Participation Participates in Group Activities: Yes Assessment - Assessment Merits Inpatient Hospitalization: For Immediate Safety, For Stabilization Inpatient DSM-V Dx: F31.81 Clinical Impression: 48 y.o. white male with a history of bipolar disorder type II and PTSD arrives via the [facility] where he presented with increasing symptoms of depressed mood and SI. BSU: Problem List - Patient Problems (1) Bipolar 2 disorder Current Visit: Yes Status: Acute Priority: High Code(s): F31.81 - BIPOLAR II DISORDER SNOMED Code(s): 70913450 Plan - Plan Treatment Plan: Name: MISAEL ROA Birthdate: 1970 [id number] Continue med management with carbamazepine, escitalopram, lithium and lorazepam. Will get EEG to rule out seizure activity. Continue inpatient level care. Continued Medication Management: Continue Outpt Medication Medications: Current Medications Acetaminophen (Tylenol Tab*) 650 mg PO Q4H PRN PRN Reason: PAIN or TEMP > 101 F Al Hydrox/Mg Hydrox/Simethicone (Maalox Plus*) 30 ml PO Q4H PRN PRN Reason: INDIGESTION Atorvastatin Calcium (Lipitor*) 20 mg PO QPM [facility] Last Admin: 12/20/18 17:38 Dose: 20 mg Carbamazepine (Tegretol Tab(*)) 600 mg PO QPM [facility] Last Admin: 12/20/18 17:37 Dose: 600 mg Carbamazepine (Tegretol Tab(*)) 800 mg PO QAM [facility] Last Admin: 12/21/18 08:45 Dose: 800 mg Diphenhydramine HCl (Benadryl Po*) 50 mg PO BEDTIME PRN PRN Reason: INSOMNIA Last Admin: 12/20/18 20:52 Dose: 50 mg Escitalopram Oxalate (Lexapro *) 20 mg PO BEDTIME [facility] Last Admin: 12/20/18 20:50 Dose: 20 mg Hydrocortisone (Hytone Cream 1%*) 1 applic TOPICAL Q1H PRN PRN Reason: ITCHING Last Admin: 12/21/18 08:57 Dose: 1 applic Levothyroxine Sodium (Synthroid Tab*) 125 mcg PO DAILY@0600 [facility] Last Admin: 12/21/18 08:42 Dose: 125 mcg Lisinopril (Prinivil Tab*) 10 mg PO QAM [facility] Last Admin: 12/21/18 08:43 Dose: 10 mg Cromberg Carbonate (Cromberg Carbonate Er Tab*) 1,350 mg PO BEDTIME [facility] Last Admin: 12/20/18 20:50 Dose: 1,350 mg Lorazepam (Ativan Tab(*)) 1 mg PO Q6H PRN PRN Reason: ANXIETY, SEIZURE, PANIC ATTACK Multivitamins (Theragran Tab*) 1 tab PO DAILY [facility] Last Admin: 12/21/18 08:44 Dose: 1 tab Nicotine (Nicotine Patch 21 Mg/24 Hr*) 1 patch TRANSDERM DAILY [facility] Last Admin: 12/21/18 08:43 Dose: Not Given Nicotine Polacrilex (Nicotine Gum*) 4 mg PO Q2H PRN PRN Reason: CRAVING Last Admin: 12/21/18 08:55 Dose: 4 mg Pharmacy Profile Note (Nicotine Patch Removal Note*) 1 note FOLLOW UP 2100 [facility] Last Admin: 12/20/18 20:54 Dose: 1 note - Discharge Plan Discharge Plan: Inpatient Hospitalization Lab Results - Lab Results Lab Results: 08/12/3012/19/18 12/19/18 16:45 16:45 17:11 WBC 9.7 RBC 4.98 Hgb 15.0 Hct 45 MCV 90 MCH 30 MCHC 33 RDW 13 Plt Count 328 MPV 7.9 Neut % (Auto) 65.0 Lymph % (Auto) 22.8 [place] % (Auto) 9.7 Eos % (Auto) 1.7 Baso % (Auto) 0.8 Absolute Neuts (auto) 6.3 Absolute Lymphs (auto) 2.2 Absolute Monos (auto) 0.9 H Absolute Eos (auto) 0.2 Absolute Basos (auto) 0.1 Absolute Nucleated RBC 0.0 Nucleated RBC % 0.1 Sodium Potassium Chloride Carbon Dioxide Anion Gap BUN Creatinine Est GFR ( Amer) Est GFR (Non-Af Amer) BUN/Creatinine Ratio Glucose POC Glucose (mg/dL) Hemoglobin A1c Calcium Total Bilirubin AST ALT Alkaline Phosphatase Total Protein Albumin Globulin Albumin/Globulin Ratio Triglycerides Cholesterol LDL Cholesterol HDL Cholesterol TSH Urine Color Yellow Urine Appearance Clear Urine pH 5.0 Ur Specific Brandt 1.021 Urine Protein Negative Urine Ketones Negative Urine Blood 1+ A Urine Nitrate Negative Urine Bilirubin Negative Urine Urobilinogen Negative Ur Leukocyte Esterase Negative Urine WBC (Auto) Trace(0-5/hpf) Urine RBC (Auto) Trace(0-2/hpf) Ur Squamous Epith Cells Present A Urine Bacteria Absent Urine Glucose Negative Urine Ascorbic Acid * A Salicylates Urine Opiates Screen None detected Acetaminophen Ur Barbiturates Screen None detected Ur Phencyclidine Scrn None detected Ur Amphetamines Screen None detected U Benzodiazepines Scrn None detected Cromberg Urine Cocaine Screen None detected U Cannabinoids Screen None detected Serum Alcohol 12/19/18 12/20/18 12/21/18 17:11 00:55 07:30 WBC RBC Hgb Hct MCV MCH MCHC RDW Plt Count MPV Neut % (Auto) Lymph % (Auto) [place] % (Auto) Eos % (Auto) Baso % (Auto) Absolute Neuts (auto) Absolute Lymphs (auto) Absolute Monos (auto) Absolute Eos (auto) Absolute Basos (auto) Absolute Nucleated RBC Nucleated RBC % Sodium 141 Potassium 4.1 Chloride 106 Carbon Dioxide 26 Anion Gap 9 BUN 13 Creatinine 0.91 Est GFR ( Amer) 107.1 Est GFR (Non-Af Amer) 88.6 BUN/Creatinine Ratio 14.3 Glucose 124 H POC Glucose (mg/dL) 92 Hemoglobin A1c Calcium 9.8 Total Bilirubin 0.30 AST 16 ALT 20 Alkaline Phosphatase 70 Total Protein 8.1 Albumin 4.9 Globulin 3.2 Albumin/Globulin Ratio 1.5 Triglycerides 223 Cholesterol 236 LDL Cholesterol 143 HDL Cholesterol 48.7 TSH 0.65 Urine Color Urine Appearance Urine pH Ur Specific Brandt Urine Protein Urine Ketones Urine Blood Urine Nitrate Urine Bilirubin Urine Urobilinogen Ur Leukocyte Esterase Urine WBC (Auto) Urine RBC (Auto) Ur Squamous Epith Cells Urine Bacteria Urine Glucose Urine Ascorbic Acid Salicylates < 2.50 Urine Opiates Screen Acetaminophen < 15 Ur Barbiturates Screen Ur Phencyclidine Scrn Ur Amphetamines Screen U Benzodiazepines Scrn Cromberg 0.34 L Urine Cocaine Screen U Cannabinoids Screen Serum Alcohol < 10 12/21/18 07:33 WBC RBC Hgb Hct MCV MCH MCHC RDW Plt Count MPV Neut % (Auto) Lymph % (Auto) [place] % (Auto) Eos % (Auto) Baso % (Auto) Absolute Neuts (auto) Absolute Lymphs (auto) Absolute Monos (auto) Absolute Eos (auto) Absolute Basos (auto) Absolute Nucleated RBC Nucleated RBC % Sodium Potassium Chloride Carbon Dioxide Anion Gap BUN Creatinine Est GFR ( Amer) Est GFR (Non-Af Amer) BUN/Creatinine Ratio Glucose POC Glucose (mg/dL) Hemoglobin A1c 5.7 H Calcium Total Bilirubin AST ALT Alkaline Phosphatase Total Protein Albumin Globulin Albumin/Globulin Ratio Triglycerides Cholesterol LDL Cholesterol HDL Cholesterol TSH Urine Color Urine Appearance Urine pH Ur Specific Brandt Urine Protein Urine Ketones Urine Blood Urine Nitrate Urine Bilirubin Urine Urobilinogen Ur Leukocyte Esterase Urine WBC (Auto) Urine RBC (Auto) Ur Squamous Epith Cells Urine Bacteria Urine Glucose Urine Ascorbic Acid Salicylates Urine Opiates Screen Acetaminophen Ur Barbiturates Screen Ur Phencyclidine Scrn Ur Amphetamines Screen U Benzodiazepines Scrn Cromberg Urine Cocaine Screen U Cannabinoids Screen Serum Alcohol
[2018-12-21] MEDS: Atorvastatin* 20 MG TAB PO SCH (19:16)
[2018-12-21] MEDS: Escitalopram * 20 MG TABLET PO SCH (20:33)
[2018-12-21] MEDS: Lithium Carbonate ER* 450 MG TAB.ER PO SCH (20:33)
[2018-12-21] MEDS: Nicotine Patch Removal NOTE FOLLOW UP SCH (20:33)
[2018-12-21] MEDS: diPHENhydraMINE PO* 50 MG PO PRN (23:03)
[2018-12-22] MEDS: Lisinopril TAB* 10 MG PO SCH (08:37)
[2018-12-22] MEDS: Nicotine* 4MG (FRUIT FLAVOR) GUM PO PRN (08:37)
[2018-12-22] MEDS: Vitamin THERAPEUTIC TAB PO SCH (08:37)
[2018-12-22] MEDS: carBAMazepine TAB(*) 200 MG PO SCH ×2 (08:37→18:15)
[2018-12-22] MEDS: Levothyroxine TAB* 125 MCG TAB PO SCH (08:37)
[2018-12-22] MEDS: Hydrocortisone 1% CREAM* 30 GM TUBE TOPICAL PRN ×2 (08:38→12:30)
[2018-12-22] MEDS: Nicotine PATCH 21 MG/24 HR* PATCH TRANSDERM SCH (09:05)
[2018-12-22] MEDS: LORazepam TAB(*) 1 MG PO PRN ×2 (12:29→21:03)
[2018-12-22] MEDS: Atorvastatin* 20 MG TAB PO SCH (18:15)
[2018-12-22] MEDS: Escitalopram * 20 MG TABLET PO SCH (20:29)
[2018-12-22] MEDS: Lithium Carbonate ER* 450 MG TAB.ER PO SCH (20:29)
[2018-12-22] MEDS: Nicotine Patch Removal NOTE FOLLOW UP SCH (20:30)
[2018-12-22] MEDS: diPHENhydraMINE PO* 50 MG PO PRN (21:04)
[2018-12-23] MEDS: Levothyroxine TAB* 125 MCG TAB PO SCH (07:38)
[2018-12-23] MEDS: Lisinopril TAB* 10 MG PO SCH (08:55)
[2018-12-23] MEDS: carBAMazepine TAB(*) 200 MG PO SCH (08:56)
[2018-12-23] MEDS: Vitamin THERAPEUTIC TAB PO SCH (08:56)
[2018-12-23] MEDS: Nicotine PATCH 21 MG/24 HR* PATCH TRANSDERM SCH (08:57)
[2018-12-23] MEDS: LORazepam TAB(*) 1 MG PO PRN (08:59)
[2018-12-23] MEDS: Nicotine* 4MG (FRUIT FLAVOR) GUM PO PRN (09:01)
[2018-12-23] MEDS: Hydrocortisone 1% CREAM* 30 GM TUBE TOPICAL PRN (09:03)
[2018-12-23 09:20] VITALS: BP 141/82
--- NOTE | 2018-12-24 13:07 | DS ---
DISCHARGE SUMMARY: DATE OF ADMISSION: 12/19/18 DATE OF DISCHARGE: 12/23/18 PROVIDER: Felisha Franco NP, in Psychiatry. SUPERVISING PHYSICIAN: Dr. Frederic Govea.* (DICTATED BY FELISHA FRANCO NP) DIAGNOSES: 1. Major depressive disorder. 2. Posttraumatic stress disorder. 3. Cluster B personality disorder. CONDITION AT THE TIME OF DISCHARGE: Stanislav is improved. He is psychiatrically cleared and stable. He participated in groups and was social with peers. His family is agreeable to discharge, as is Stanislav. He did well here psychiatrically. He tolerated medications well. He will be attending [facility]. MENTAL STATUS EXAM: At the time of discharge, Stanislav is calm, cooperative, and makes good eye contact. He is alert and oriented x4. His grooming is adequate. His speech pace is normal. His thought processes are logical. He is not psychotic or delusional. He denies AH, VH, SI, and HI. His insight is fair. His judgment is good. He is willing to follow up and he is urged to see a therapist. DISCHARGE INSTRUCTIONS TO THE PATIENT: A. Medications: 1. Lipitor 20 mg at p.m. 2. Carbamazepine 600 mg in the evening and 800 mg in the morning. 3. Flexeril 10 mg b.i.d. p.r.n. pain. 4. Benadryl 50 mg at bedtime as needed for insomnia. 5. Lexapro 20 mg at bedtime. 6. Hydrocortisone 1% cream for itching on bug bites. 7. Levothyroxine 125 mcg daily. 8. Lisinopril 10 mg daily. 9. [place] carbonate ER tablets 450 mg tablets 1350 mg at bedtime. 10. Lorazepam 1 mg tablet q.6 hours p.r.n. anxiety or seizure aura. B. Diet is regular. C. Activities as tolerated. He is a smoker, but he has declined a referral to the [place] [employer] at this time. If he decides to access this free service in the future, he can contact the Quitline toll-free at [phone]- [phone]. There are no studies pending at the time of discharge. D. Followup care. Stanislav has appointments on 12/27/18, at 3:15 with his therapist, Colton Fierro. He also has an appointment with psychiatrist, Dr. Weinberg, on , 12/26/18, at 2:00 p.m. E. Disposition. Stanislav is being discharged to his own apartment which has been cleaned by his ex- and his daughters. F. Substance abuse followup is not indicated at this time. HOSPITAL COURSE: Part A. Chief Complaint: "I stopped sleeping Sunday, a seizure started , my suicidal ideation is worsening." The patient is a 48-year-old white male with a history of bipolar 2 disorder who arrives brought from [facility] by law enforcement on and is here now on a voluntary status following his confession to staff at [facility] that he was considering suicide either by crashing his car or by using a machete to cut himself. Stanislav states that this is all situational. He says he is worried about his money. He is worried about how "evil" his boss is. He also has fleas in his apartment. All of these things are immediate triggers. He is also having a hard time sleeping. As he speaks, he seems as though he is slightly pressured and he makes some mildly grandiose statements which makes me wonder if he is mildly hypomanic. He states the suicidal ideation was worsening. He left his job by simply walking out after his boss was incredibly cruel to him, he states, "my biggest problem right now is depression." He wonders if he is ready to go back to work. He considers that maybe he needs to be on disability for a while. He has found, however, that he has more support than he thought he did. Despite the fact that his apartment has fleas and he is one and a half months behind in rent, his ex-, Nicole, is ready to bomb the house for fleas and to help him clean it out. In addition, he does not want to leave his 3 children behind without a father. Part B. Psychiatric treatment was rendered. Stanislav was admitted to the adult behavioral unit and placed on 15-minute checks for safety. Stanislav fit into the unit and appeared to be coping well. On Sunday, he indicated that he had a difficult weekend as he was adjusting to being "institutionalized." Stanislav asserted that the PTSD he was experiencing was "revved up" and that his boss that he had been working for and the job that he had got, the job that he had quit, the boss was "psychotic and terrorizing me." We had Stanislav complete an MMPI which came back with information indicating that he has strong indications of a cluster B personality disorder; elements of narcissistic and borderline personality disorder were noted. Stanislav requested an EEG and an MRI, both of which were ordered by Radhames Garcia neurologist. I declined to have these ordered in the hospital as he was leaving on Sunday and had arrived on Sunday. We did increase his lithium to a therapeutic dose of 1350 mg of extended-release lithium. I did receive a phone call from [facility] warning that carbamazepine can affect lithium levels and that his lisinopril can also have an effect on lithium concentration. Also, the pharmacist talked about how lithium can affect thyroid function. All of these, according to his labs, were not a concern. His TSH on 12/19/18 was 0.65. His lithium on 12/19/18 was 0.34, when he came in on 900 mg. Thus, the concerns seemed unjustified. Although I did change his diagnosis to major depressive disorder, it seems as though the addition of lithium can help to stabilize his mood and reduce his susceptibility to depression. Incidentally, his hemoglobin A1c is 5.7, triglycerides are 223, cholesterol 236, LDL cholesterol 143, HDL cholesterol 48.7. Although I did not meet with his family, his social work coordinator discussed with his oldest daughter Stanislav's prior hospitalization/rehab in [place]. This is one of the inclinations we had to start the MMPI as he was not diagnosed with bipolar disorder apparently in [place], but was diagnosed with a personality disorder. No consults were entered for Stanislav. He is improved. He is no longer suicidal. He is sleeping. He continues to feel some level of guilt about not being able to provide adequately for his family, but at the same time goes into a long -winded discussion regarding how he cannot possibly pay child support and feed himself. He also indicated that the state of his apartment, which was so full of items and food that it collected fleas that he could not even wash a dish due to his depression. He became quite agitated when it was discussed that depressed people must make steps to feel better and he became accusatory stating "have you ever had PTSD?!" Stanislav is future oriented. He wants to get a new job. He is looking for that. He still is interested in maybe getting disability for a short time. This seems an unlikely possibility. Nevertheless, we wish Stanislav luck and hope that he applies for TC3 in the fall or winter and that if he chooses to become a [employer], he is successful on doing so. FELISHA FRANCO, HUY [id number]/[facility] #: [id number] ZHANE
== END 2018-12-23 13:50 | disposition home or self-care (01) | DRG 754 ==
LOC: ED 16:23 → BSU 19:36
PROVIDERS: ADMIT Psychiatry & Neurology Psychiatry; ATTEND Psychiatry & Neurology Psychiatry
DX: F32.9 Major depressive disorder, single episode, unspecified (principal); R45.851 Suicidal ideations; F43.10 Post-traumatic stress disorder, unspecified; F60.89 Other specific personality disorders; Z62.810 Personal history of physical and sexual abuse in childhood; F17.290 Nicotine dependence, other tobacco product, uncomplicated; G47.00 Insomnia, unspecified; Z79.899 Other long term (current) drug therapy
CPT/HCPCS: 36415; 80053; 80061; 80178; 80307; 80320; 80329; 81003; 81015; 83036; 84443; 85025; 87086; 99222; 99231; 99238; 99282; A9270-GY; G0480